=== PATIENT | male | born 1990 | race Caucasian/White ===

== ENCOUNTER 2017-04-20 06:09 | Observation (INO) | payer OTHER ==
[~2017-04-20] VITALS: Ht 180.3 cm; Wt 70.8 kg
[~2017-04-20 06:09] MED LIST: IBUP1TAB5 PO; NEUR300C PO; TYLETAB34 PO
[2017-04-20] MEDS ORDERED: METOPROLOL TARTRATE 25 MG TAB PO PRN (06:45)
[2017-04-20] MEDS ORDERED: CHLORHEXIDINE GLUCONATE 2 % 1 PACK (2 CLOTHS) TOPICAL PRN (06:45)
[2017-04-20] MEDS ORDERED: INSULIN HUMAN REGULAR 1,000 UNITS/10 ML VIAL SQ PRN (06:45)
[2017-04-20] MEDS ORDERED: SODIUM CHLORID 0.9% 500 ML IV PRN (06:45)
[2017-04-20] MEDS ORDERED: LACTATED RINGER'S 1000 ML IV PRN (06:45)
[2017-04-20] MEDS ORDERED: POVIDONE IODINE 5% (ANTISEPSIS KIT) 4 APPLICATIONS EACH NARE PRN (06:45)
[2017-04-20] MEDS ORDERED: FAMOTIDINE 20 MG/2 ML VIAL ONE (07:01)
[2017-04-20] MEDS ORDERED: MIDAZOLAM HCL 2 MG/2 ML VIAL ONE (07:01)
[2017-04-20] MEDS ORDERED: LIDOCAINE 1%/EPINEPHrine 1:100,000 SOLN 50 ML VIAL ONE (07:13)
[2017-04-20] MEDS ORDERED: OXYMETAZOLINE HCL 0.05% 15 ML NASAL SPRAY ONE (07:14)
[2017-04-20] MEDS: AMPICILLIN/SULBAC 3 GM/NS 100 ML IV SCH ×10 (07:54→23:31)
[2017-04-20] MEDS ORDERED: ALBUTEROL SULFATE 90 MCG/ACT HFA 8 GM INHALER INH ONE (08:41)
[2017-04-20 09:10] VITALS: PULSE 81
[2017-04-20] MEDS ORDERED: MORPHINE SULFATE 2 MG/ML INJ ONE ×2 (09:11→10:07)
--- NOTE | 2017-04-20 09:11 | MP ---
cc: YI MCCARTHY M.D. DATE OF SURGERY April 20, [address] Yi mccarthy PREOPERATIVE DIAGNOSES 1. Nasal airway obstruction. 2. Nasal septal deviation. 3. Hypertrophy of inferior turbinates. 4. Obstructive sleep apnea. POSTOPERATIVE DIAGNOSES 1. Nasal airway obstruction. 2. Nasal septal deviation. 3. Hypertrophy of inferior turbinates. 4. Obstructive sleep apnea. OPERATION PERFORMED 1. Open repair nasal septal fracture. 1. Bilateral submucosal resection of inferior turbinates. 2. Endoscopic excision of right neto bullosa. INDICATIONS FOR PROCEDURE The indications are documented in the history and physical. DESCRIPTION OF OPERATION The patient was taken to OR #2 and placed in the supine position. Following induction of general anesthesia and intubation the nose was packed bilaterally with cotton pledgets saturated in 0.05% oxymetazoline. The nasal septum and inferior turbinates were injected with a total of 6 mL of 1% Xylocaine with epinephrine 1:100,000. He was then prepped and draped for surgery. The packing was removed and a hemitransfixion incision was made in the left nasal vestibule. Through this incision the septal mucosa was elevated bilaterally as far as the junction of the bony cartilaginous septum. This revealed a very thick, twisted and irregular quadrangular cartilage with evidence of old fracture. A cumulative area of 2.5 x 3 cm was removed preserving 1.5 cm dorsal and caudal cartilaginous struts. The caudal cartilaginous strut was fully mobilized and was returned to the midline. When this was completed the mucosa was elevated from the bony septum. This was removed using [place]-Rodriguez forceps and [place]ello septal forceps. It was observed at the septum could still not return to the midline because of the presence of a very large neto bullosa of the right middle turbinate. This was then injected with lidocaine and epinephrine along its attachment to the lateral nasal wall and removed under endoscopic visualization using a through cutting [place] forceps and the [place]-Cuello forceps. The cut edge of the middle turbinate remnant was cauterized with suction Bovie at 35 osorio. This allowed for return of the septal mucosa to the midline. The maxillary crest was then removed using [place]-Rodriguez forceps. The incision was closed using running suture of 4-0 chromic and the septal mucosa was reapproximated to each other with a quilting stitch of 4-0 plain gut. Inferior turbinates were addressed next. They were fractured out medially and stab incisions opened along their inferior surfaces. Through these incisions the submucosal soft tissue was reduced using a curette and preserving the conchal bone. Incisions were cauterized using suction Bovie at 35 osorio. The remnants of the inferior turbinates were then relateralized to the lateral nasal wall. The nose was packed bilaterally with 5.5 cm Rapid Rhino packs. Each was inflated with 5 mL of air and the procedure was terminated. The patient was reversed from anesthesia and taken to Recovery in good condition. There were no complications. Blood loss was 60 mL. MD GILSON Santos/TIFFANY /8:52 AM /8:58 AM
[2017-04-20] MEDS ORDERED: HYDROmorphone HCL PF 0.5 MG/0.5 ML SYRINGE ONE (09:31)
[2017-04-20 11:00] VITALS: BP 99/78; PULSE 79; RESP 16; TEMP 96.1; O2SAT 98
[2017-04-20 11:20] VITALS: O2SAT 100
[2017-04-20 11:21] VITALS: O2SAT 100
[2017-04-20] MEDS ORDERED: ONDANSETRON HCL 4 MG/2 ML VIAL IV PUSH PRN (13:15)
[2017-04-20] MEDS ORDERED: LACTATED RINGER'S 1000 ML INJ 1,000 ML IV SCH (13:15)
[2017-04-20] MEDS: ACETAMINOPHEN/HYDROcodone 325 MG/5 MG TAB PO PRN ×3 (13:19→21:28)
[2017-04-20 16:00] VITALS: BP 134/83; PULSE 88; RESP 12; TEMP 96.1; O2SAT 98
[2017-04-20 20:00] VITALS: BP 148/86; PULSE 66; RESP 18; TEMP 97.4; O2SAT 98; O2SAT 99
[2017-04-21] VITALS: BP 140/76; PULSE 91; RESP 20; TEMP 96.1; O2SAT 97
[2017-04-21] MEDS: ACETAMINOPHEN/HYDROcodone 325 MG/5 MG TAB PO PRN ×2 (03:24→08:14)
[2017-04-21 07:50] VITALS: BP 151/91; PULSE 78; RESP 20; TEMP 96.2; O2SAT 100
[2017-04-21 08:00] VITALS: TEMP 97.4
[2017-04-21] MEDS: AMPICILLIN/SULBAC 3 GM/NS 100 ML IV SCH ×2 (08:00)
== END 2017-04-21 09:14 | disposition home or self-care (01) ==
LOC: PHSDC 06:09 → PH3A 11:06
PROVIDERS: ADMIT Otolaryngology; ATTEND Otolaryngology
DX: J34.89 Other specified disorders of nose and nasal sinuses (principal); G47.33 Obstructive sleep apnea (adult) (pediatric); J34.2 Deviated nasal septum; J34.3 Hypertrophy of nasal turbinates
CPT/HCPCS: 00160; 21335; 30140; 31240; 88305; 88311; 94762; 96374; 96375; 96376; G0378; J0295; J1170; J2250; J2270; J2405; J7120